=== PATIENT | female | born 1990 | race Caucasian/White ===

== ENCOUNTER 2022-11-27 07:53 | Emergency (ER) | payer OTHER, BC, MEDICAID, SELFPAY ==
[2022-11-27] VITALS (7 sets, daily range): BP systolic 112–141; BP diastolic 71–93; PULSE 76; RESP 18; TEMP 36.6; O2SAT 98–100; BMI 41.5
--- NOTE | 2022-11-27 08:20 | CT_ITS ---
WS: [id number] CT ABDOMEN AND PELVIS WITH CONTRAST HISTORY: diffuse abdominal pain, nausea, bloody stools TECHNIQUE: Imaging performed of the abdomen and pelvis with IV contrast. Single phase imaging of the abdomen. Coronal and sagittal reformats are submitted. All CT scans at [facility] use at [address] one of these dose optimization techniques: automated exposure control; mA and/or kV adjustment per patient size (includes targeted exams where dose is matched to clinical indication); or iterative re construction. IV CONTRAST: Omnipaque 300; 100 mL IV. Oral contrast: No DLP: 1065.56 mGy.cm COMPARISON: None available. Lower thorax: Lung bases are clear. Heart is normal size. No hiatal hernia. Liver/biliary system: Normal size with no intrahepatic dilatation. Gallbladder: Normal. No gallstones or wall thickening. No pericholecystic fluid. Pancreas: Normal size pancreas and pancreatic duct. No adjacent inflammation. Spleen: Normal size spleen. No mass or infarct. Adrenal glands: Normal. Right kidney: Normal. Left kidney: Normal. Aorta: Normal. Lymphadenopathy: None. Free fluid: None. GI tract: Unremarkable. Abdominal wall: Fat containing umbilical hernia. Pelvis: No free fluid or adenopathy within the pelvis. Uterus is midline. There is mild thickening an d slight enhancement along the cervix and a small focus of air. Small follicles within each ovary. Bones: Unremarkable. CT/CT abdomen pelvis w con* [id number] IMPRESSION: 1. No acute abdominal or pelvic abnormalities are identified. 2. Mild thickening and enhancement in the cervix. Recommend evaluation by RELATIONS SPECIALIST. 3. Normal appendix.
--- NOTE | 2022-11-27 08:20 | ED_ITS ---
HPI - Abdominal Pain General: Chief Complaint: GI Bleed Stated Complaint: weakness, bloody stool Time Seen by Provider: 11/27/22 08:00 Source: patient Mode of arrival: ambulatory Limitations: no limitations History of Present Illness: Patient is a nice 32-year-old female presents to ED today with a complaint of diffuse abdominal pains that she states is crampy in nature and began around 1 AM this morning. Patient states she has had 2 marlyn bloody diarrhea stools (quantifies as a few tablespoons per stool). She states she feels extremely weak. Patient feels nauseous but has not had any episodes of emesis. No vomiting. No urinary symptoms. No fevers. Patient states she has had a few previous similar abdominal episodes (without the rectal bleeding) no causes ever been found. MD elicited complaint: abdominal pain Pertinent past history: none Onset (ago): day(s) Pain Consistency: constant Location: Diffuse Severity: severe Quality: cramping Radiation: none Migration to: no migration Exacerbating factors: nothing Relieving factors: nothing Associated Symptoms: Reports GI cramping, diarrhea, hematochezia and nausea; Denies chills, dysuria, fever(s) and vomiting Related Data: Patient : No Review of Systems Const: Denies: fever(s), chills, body aches, fatigue or malaise Card: Denies: chest pain Resp: Denies: dyspnea GI: Reports: abdominal pain, nausea, diarrhea, GI cramping and hematochezia; Denies: vomiting : Denies: flank pain or dysuria Musc: Denies: neck pain Skin/Breast: Denies: rash Neuro: Denies: headache(s) Physical Exam Const: COMMON NORMALS: patient oriented x3, no limitations and alert GENERAL APPEARANCE: ill appearing ORIENTATION/CONSCIOUSNESS: Yes awake, Yes oriented to person, Yes oriented to place and Yes oriented to time HENMT: COMMON NORMALS: normocephalic and atraumatic HEAD & SCALP: normal to inspection, normocephalic and atraumatic Resp: COMMON NORMALS: normal respiratory effort and clear to auscultation bilaterally AUSCULTATION: clear to auscultation bilaterally Cardio: COMMON NORMALS: regular rate and regular rhythm RATE: regular rate RHYTHM: regular rhythm GI: COMMON NORMALS: Normal to inspection, nondistended, normoactive bowel sounds present, Soft to palpation, No hepatosplenomegaly present and no masses INSPECTION: Yes normal to inspection AUSCULTATION: Yes normoactive bowel sounds PALPATION: Yes Soft to palpation, Yes Tenderness to palpation present (GI) (diffuse), No Rigid due to palpation and Yes No hepatosplenomegaly present RECTAL EXAM: visual inspection normal, no lesion(s) noted, no fissure noted, no hemorrhoids noted and No Fistula present (GI) : COMMON NORMALS: Yes no CVA tenderness BLADDER/KIDNEY EXAM: Yes no CVA tenderness Back/Pelvis: COMMON NORMALS: no CVA tenderness Extremity: COMMON NORMALS: normal to inspection GENERAL: Yes normal exam except as noted Neuro: NEELIMA COMA SCALE: document GCS findings [place] coma scale eye opening: Spontaneous [place] coma scale verbal response: Orientated [place] coma scale motor response: Obey commands Ne[place] coma scale total score: 15 COMMON NORMALS: patient oriented x3 SENSORIUM/ORIENTATION: Yes alert, Yes oriented to person, Yes oriented to place and Yes oriented to time Skin: COMMON NORMALS: no rashes or lesions noted GENERAL SKIN EXAM: no rashes or lesions noted Course Vital Signs: Vital signs: Vital Signs Temperature 97.8 F 11/27/22 08:02 Pulse Rate 76 11/27/22 08:02 Respiratory Rate 18 11/27/22 08:02 Blood Pressure 128/93 11/27/22 11:00 Pulse Oximetry 99 11/27/22 11:00 Oxygen Delivery Me thod 11/27/22 08:54 MDM - Abdominal Pain Medical Decision Making Patient has not had any bloody stools while here. She states she feels slightly improved after fluids and pain/nausea meds. Patient is not tachycardic, febrile, or hypotensive. Blood work overall is fairly unremarkable. White count is 10.7. She has a minor bump in her lactate at 2.3. UA is clear. CT scan showing no acute abdominal or pelvic abnormalities. They did mention some enhancement of her cervix. Patient states she is UTD on her PAP. At this time I recommend patient follow-up with her primary care provider in 2 to 3 days for re-evaluation. Information was placed with case management to get her set up for evaluation for possible colonoscopy. Strict return ED precautions given in regards to worsening abdominal pains, rectal bleeding, fevers, any other concerns she may have. Lab Data 11/27/22 08:30 11/27/22 08:30 Labs/Radiology: Radiology Impressions Abdomen/Pelvis CT 11/27/22 08:20 IMPRESSION: 1. No acute abdominal or pelvic abnormalities are identified. 2. Mild thickening and enhancement in the cervix. Recommend evaluation by DARK ROOM ATTENDANT. 3. Normal appendix. Laboratory Results WBC 10.7 10^3/uL (4.0-10.0) H 11/27/22 08:30 RBC 4.83 10^6/uL (4.1-5.3) 11/27/22 08:30 Hgb 13.1 g/dL (11.5-15.3) 11/27/22 08:30 Hct 40.3 % (37.0-47.0) 11/27/22 08:30 MCV 83.4 fl (81-99) 11/27/22 08:30 MCH 27.1 pg (28.0-34.0) L 11/27/22 08:30 MCHC 32.5 g/dL (30.0-36.0) 11/27/22 08:30 RDW 11.9 % (12.1-15.1) L 11/27/22 08:30 Plt Count 258 10^3/cmm (130-400) 11/27/22 08:30 MPV 9.6 fL (7.4-10.4) 11/27/22 08:30 Neut % (Auto) 80.6 % 11/27/22 08:30 Lymph % (Auto) 14.5 % 11/27/22 08:30 [place] % (Auto) 3.6 % 11/27/22 08:30 Eos % (Auto) 0.6 % 11/27/22 08:30 Baso % (Auto) 0.3 % 11/27/22 08:30 Neut # (Auto) 8.65 10^3/uL (1.8-7.7) H 11/27/22 08:30 Lymph # (Auto) 1.6 10^3/uL (0.8-4.8) 11/27/22 08:30 [place] # (Auto) 0.4 10^3/uL (0.2-0.9) 11/27/22 08:30 Eos # (Auto) 0.1 10^3/uL (0.0-0.8) 11/27/22 08:30 Baso # (Auto) 0.0 10^3/uL (0.0-0.1) 11/27/22 08:30 Nucleated RBC % (auto) 0 % 11/27/22 08:30 Nucleated RBCs # 0.0 /100WBC 11/27/22 08:30 Sodium 137 mmol/L (136-145) 11/27/22 08:30 Potassium 4.1 mmol/L (3.5-5.1) 11/27/22 08:30 Chloride 102 mmol/L (98-107) 11/27/22 08:30 Carbon Dioxide 23 mmol/L (22-29) 11/27/22 08:30 Anion Gap 16.1 (5-19) 11/27/22 08:30 BUN 11 mg/dL (6-20) 11/27/22 08:30 Creatinine 0.6 mg/dL (0.5-0.9) 11/27/22 08:30 GFR Calculation 115.1 mL/min (90-130) 11/27/22 08:30 Glucose 131 mg/dL (65-115) H 11/27/22 08:30 Calculated Osmolality 285 mOsm/kg (285-295) 11/27/22 08:30 Lactic Acid 2.3 mmol/L (0.5-2.2) H 11/27/22 08:30 Calcium 9.2 mg/dL (8.5-10.5) 11/27/22 08:30 Total Bilirubin 0.3 mg/dL (0.15-1.2) 11/27/22 08:30 AST 14 U/L (0-32) 11/27/22 08:30 ALT 16 U/L (0-33) 11/27/22 08:30 Alkaline Phosphatase 91 U/L (35-105) 11/27/22 08:30 Total Protein 7.4 g/dL (6.6-8.7) 11/27/22 08:30 Albumin 4.2 g/dL (3.5-5.2) 11/27/22 08:30 Globulin 3.2 g/dL (1.3-4.6) 11/27/22 08:30 HCG, Qual Negative (Negative) 11/27/22 08:30 Urine Color Yellow (Yellow) 11/27/22 09:41 Urine Appearance Clear (CLEAR) 11/27/22 09:41 Urine pH 8 (5-7) H 11/27/22 09:41 Ur Specific [place] 1.015 (1.005-1.030) 11/27/22 09:41 Urine Protein Neg (Negative) 11/27/22 09:41 Urine Glucose (UA) Norm (Normal) 11/27/22 09:41 Urine Ketones Negative (Negative) 11/27/22 09:41 Urine Blood Neg (Negative) 11/27/22 09:41 Urine Nitrate Negative (Negative) 11/27/22 09:41 Urine Bilirubin Neg (Negative) 11/27/22 09:41 Prot Sulfosalicylic Acd Negative (Negative) 11/27/22 09:41 Urine Urobilinogen Norm mg/dL (Negative) 11/27/22 09:41 Ur Leukocyte Esterase Negative (Negative) 11/27/22 09:41 Discharge Plan Discharge Patient Disposition: Home Clinical Impression: Bloody diarrhea, Abdominal pain Condition: Stable Prescriptions: New hydrocodone-acetaminophen 5-325 mg tablet 1 tab PO Q6H PRN (Reason: pain) Qty: 14 0RF ondansetron 4 mg tablet,disintegrating 4 mg PO Q8H PRN (Reason: nausea and vomiting) Qty: 14 0RF No Action ibuprofen 200 mg Tablet 400 mg PO Q6H PRN (Reason: Pain) hydroxyzine HCl 25 mg tablet 25 mg PO QPM PRN (Reason: Anxiety) escitalopram oxalate 10 mg tablet 5 mg PO DAILY Discharge Orders: Discharge ED (Routine); Ordered 11/27/22 Ordered By: Michelle Garcia Referrals: Angela Sow DO [Primary Care Provider] - Patient Instructions: Abdominal Pain (ED), Opioid Safety, Pain Management Activity Restrictions/Additional Instructions: As we discussed do a bland liquid diet over the next 48 hours and slowly advance as tolerated. You may use pain medication sparingly for severe pain. You need to return to the emergency department for worsening or severe abdominal pains, worsening rectal bleeding, repetitive episodes of vomiting, fevers, or any other concerns you may have. As we discussed I have placed information with case management to get you set up for evaluation/need for possible colonoscopy evaluate for source of rectal bleeding. Stand Alone Forms: Work/School Release Coding Level of Care Code ED Wire Spooler for Chg Fwd Exam Comprehensive
[2022-11-27 08:43] LABS: Basophils % 0.3 %; Eosinophils # 0.1 10^3/uL (0.0-0.8); Eosinophils % 0.6 %; Hematocrit 40.3 % (37.0-47.0); Hemoglobin 13.1 g/dL (11.5-15.3); Lymphocytes # 1.6 10^3/uL (0.8-4.8); Lymphocytes % 14.5 %; Mean Corpuscular HGB Conc 32.5 g/dL (30.0-36.0); Mean Corpuscular Hemoglobin 27.1 pg (28.0-34.0); Mean Corpuscular Volume 83.4 fl (81-99); Mean Platelet Volume 9.6 fL (7.4-10.4); Monocytes # 0.4 10^3/uL (0.2-0.9); Monocytes % 3.6 %; Neutrophils # 8.65 10^3/uL (1.8-7.7); Neutrophils % 80.6 %; Nucleated Red Blood Cells % 0 %; Platelet Count 258 10^3/cmm (130-400); Red Blood Count 4.83 10^6/uL (4.1-5.3); Red Cell Distribution Width 11.9 % (12.1-15.1); White Blood Count 10.7 10^3/uL (4.0-10.0)
[2022-11-27] MEDS: ondansetron 2 mg/ML SDV 2 mL 4 MG IVP (08:45)
[2022-11-27] MEDS: fentaNYL 50 mcg/mL INJ 2mL IVP (08:45)
[2022-11-27] MEDS: sodium chloride 0.9% 1,000 ML 999 ML IV (08:46)
[2022-11-27 09:00] LABS: HCG, Serum Qual Negative (Negative)
[2022-11-27 09:05] LABS: Lactic Sepsis W/Reflex 2.3 mmol/L (0.5-2.2)
[2022-11-27 09:06] LABS: Alanine Aminotransferase 16 U/L (0-33); Albumin Level 4.2 g/dL (3.5-5.2); Alkaline Phosphatase 91 U/L (35-105); Anion Gap 16.1 (5-19); Aspartate Amino Transferase 14 U/L (0-32); Blood Urea Nitrogen 11 mg/dL (6-20); Calcium 9.2 mg/dL (8.5-10.5); Carbon Dioxide 23 mmol/L (22-29); Chloride 102 mmol/L (98-107); Globulin 3.2 g/dL (1.3-4.6); Glomerular Filtration Rate 115.1 mL/min (90-130); Glucose 131 mg/dL (65-115); Osmolality Calculated 285 mOsm/kg (285-295); Potassium 4.1 mmol/L (3.5-5.1); Sodium 137 mmol/L (136-145); Total Bilirubin 0.3 mg/dL (0.15-1.2); Total Protein 7.4 g/dL (6.6-8.7)
[2022-11-27 10:01] LABS: Add Urine Microscopic? NO; Charge for UA Resulting for Rev
[2022-11-27] MEDS: iohexol 350 mg/mL 500 mL Btl (per mL) IV (10:05)
[2022-11-27 10:19] LABS: Bilirubin Urine Neg (Negative); Blood Urine Neg (Negative); Glucose Urine UA Norm (Normal); Ketones Urine Negative (Negative); Leukocyte Esterase Urine Negative (Negative); Nitrate Urine Negative (Negative); Protein Urine Neg (Negative); Specific Gravity, Urine 1.015 (1.005-1.030); Sulfosalicylic Acid Urine Negative (Negative); Urine Appearance Clear (CLEAR); Urine Color Yellow (Yellow); Urobilinogen Urine Norm (Negative); pH Urine 8 (5-7)
[2022-11-27 10:28] LABS: Reflex Lactate Order REFLEX LACTIC ORDERD
--- NOTE | 2022-11-27 15:39 | DCPLANNER ---
Addendum entered by Lora Payne 01/08/23 07:58: Patient did attend appointment with general surgery Addendum entered by Lora Payne 11/29/22 10:47: Patient has a follow up appointment scheduled for Saturday, December 24, 2022 at 8:[address] Miguel at general surgery. Clinic will call patient with appointment information. Original Note: manager operating had message to schedule a follow up appointment for patient with general surgery. manager operating sent patients information to the front office staff at general surgery. Patients information will be printed and reviewed. Clinic will call patient with appointment information.
== END 2022-11-27 11:27 | disposition home or self-care (01) ==
PROVIDERS: Emergency Provider Physician Assistant; PCP Family Medicine
DX: R10.9 Unspecified abdominal pain (principal); K92.1 Melena; R19.7 Diarrhea, unspecified
CPT/HCPCS: 74177; 80053; 81003; 83605; 84703; 85025; 96361; 96374; 96375; 99285; J2405; J3010; J7030; Q9967

== ENCOUNTER 2023-01-08 07:20 | Day surgery (SDC) | payer OTHER, BC, MEDICAID, SELFPAY ==
[2023-01-06 10:36] VITALS: BMI 42.3
[2023-01-08 07:44] VITALS: BP 149/92; PULSE 88; RESP 18; TEMP 36.4; O2SAT 98
[2023-01-08 07:54] LABS: OR HCG Qualitative Urine Negative (Negative)
[2023-01-08] MEDS: sodium chloride 0.9% 1,000 ML 30 ML IV (08:01)
--- NOTE | 2023-01-08 08:06 | P.ANESASSM_ITS ---
Pre-Anesthetic Assessment Height/Weight: Height 1.65 m Weight 115.212 kg Temp Pulse Resp BP Pulse Ox O2 Del Method 97.6 F 88 18 149/92 98 01/08/23 07:44 01/08/23 07:44 01/08/23 07:44 01/08/23 07:44 01/08/23 07:44 01/08/23 07:44 Operation Date: 01/08/23 09:00 Proposed Procedures p [id number] egd, [id number] colon R10.9,K92.1(Not Applicable) - DO emili Mcgraw Colonoscopy(Not Applicable) - Paresh Miguel DO Familial anesthetic complications: None Was Beta Maribell taken within 24 hours: N/A Was Clonidine taken within 24 hours: N/A Last intake: Intake Last Liquid Date 02/04/23 Last Liquid Time 23:30 Last Solid Date 01/06/23 Last Solid Time 20:00 Social No alcohol and No tobacco Exam alert, oriented x 3, clear to auscultation bilaterally and regular rate & rhythm Airway Submandibular: within normal limits Cervical ROM: within normal limits Mallampati: Class III Dentition: full History/ROS No significant history except as noted and No significant complaints Pulmonary None reported CV/HEM None reported None reported Hepatic None reported GI Gastroesophageal Reflux Disease (None this am) Metabolic Morbid Ob[place] [facility] [place] None reported Neuropsych Anxiety and Depression Anesthetic Plan ASA status: 2 Anesthesia: Anesthesia Evaluation, General and MAC Risk of > 500 ml blood loss (7ml/kg in children): No Medications/Allergies Home Medications Medication Instructions Recorded Confirmed Last Taken Type hydroxyzine HCl 25 mg tablet 25 mg PO QPM PRN Anxiety 11/27/22 01/06/23 01/03/23 History ibuprofen 200 mg tablet 400 mg PO Q6H PRN Pain 11/27/22 01/06/23 01/07/23 19:00 History ondansetron 4 mg disintegrating 4 mg PO Q8H PRN nausea and 11/27/22 01/06/23 01/07/23 13:00 Rx tablet vomiting #14 tabs hydrocortisone 2.5 % topical cream 1 applic MO QID 10 days #30 grams 01/08/23 Unknown Rx with perineal applicator (Anusol-HC) Allergies Allergy/AdvReac Type Severity Reaction Status Date / Time morphine Allergy nausea Verified 12/24/22 07:52 Current Medications Generic Name Dose Route Start Last Admin Trade Name Freq PRN Reason Stop Dose Admin Sodium Chloride 1,000 mls @ 30 mls/hr 01/08/23 07:30 01/08/23 08:01 Sodium Chloride 0.9% IV 01/09/23 07:29 30 mls/hr .Q24H MARICRUZ Administration PFSH Anesthesia Medical History (Updated 12/24/22 @ 08:24 by Paresh Miguel DO) Abdominal pain Surgical History History of tonsillectomy and adenoidectomy Hx of tubal ligation Family History Mother Thyroid disease Social History Smoking and tobacco status: never smoked Alcohol intake: former Data Anesthesia Cardiac Studies: No Data to Display
--- NOTE | 2023-01-08 09:26 | W.PM.OPSUD ---
Surgery/Procedure H&P Update DATE OF PROCEDURE: January 08, 2023 DATE H&P PERFORMED: 12/24/22 H&P UPDATE INFORMATION: I have reviewed H&P completed within last 30 days, I have examined patient prior to procedure and No changes to prior documentation PLANNED PROCEDURE: Operation Date: 01/08/23 09:00 Proposed Procedures p [id number] egd, [id number] colon R10.9,K92.1(Not Applicable) - DO emili Mcgraw Colonoscopy(Not Applicable) - Paresh Miguel DO
[2023-01-08 09:57] VITALS: BP 128/57; PULSE 88; RESP 18; TEMP 36.5; O2SAT 100
[2023-01-08 10:13] VITALS: BP 136/76; PULSE 103; RESP 18; TEMP 36.7; O2SAT 100
--- NOTE | 2023-01-08 12:59 | ANE.PACU2 ---
Inpatient post-anesthesia follow up: Airway intact: Yes Vital signs: Temperature 98.0 F Pulse Rate 103 Respiratory Rate 18 Blood Pressure 136/76 Pulse Oximetry 100 Oxygen Delivery Me thod Room Air Oxygen Flow Rate Fraction of Inspir ed Oxygen Hydration adequate: Yes Nausea and vomiting: No Pain level: 2
== END 2023-01-08 10:27 | disposition home or self-care (01) ==
PROVIDERS: Anesthesiology; PCP Family Medicine; Visit Provider Surgery
PROC: 0DJD8ZZ Inspection of Lower Intestinal Tract, Via Natural or Artificial Opening Endoscopic (ICD-10-PCS; CPT 45378; 2023-01-08 09:00)
PROC: 0DJ08ZZ Inspection of Upper Intestinal Tract, Via Natural or Artificial Opening Endoscopic (ICD-10-PCS; CPT 43235; 2023-01-08 09:00)
DX: R10.9 Unspecified abdominal pain (principal); K21.9 Gastro-esophageal reflux disease without esophagitis; K64.8 Other hemorrhoids; K29.50 Unspecified chronic gastritis without bleeding; E66.01 Morbid (severe) obesity due to excess calories; Z68.41 Body mass index [BMI] 40.0-44.9, adult
CPT/HCPCS: 43239; 45378; 81025; 84703; 88305; J2704; J7030

== ENCOUNTER → 2024-01-23 10:08 | Outpatient (BNVA) | payer OTHER, SELFPAY | PROVIDERS: PCP Family Medicine; Visit Provider Family Medicine | DX: Z13.6 Encounter for screening for cardiovascular disorders; A04.8 Other specified bacterial intestinal infections | CPT/HCPCS: 85025 ==

== ENCOUNTER 2024-01-26 07:51 | Outpatient (CLI) | payer OTHER, SELFPAY ==
[2024-01-26 08:29] LABS: Basophils % 0.7 %; Eosinophils # 0.1 10^3/uL (0.0-0.8); Eosinophils % 2.4 %; Hematocrit 36.7 % (36-47); Lymphocytes # 1.9 10^3/uL (0.8-4.8); Lymphocytes % 34.5 %; Mean Corpuscular HGB Conc 31.3 g/dL (30-55); Mean Corpuscular Hemoglobin 26.1 pg (27-33); Mean Corpuscular Volume 83.2 fl (85-98); Mean Platelet Volume 9.7 fL (7.4-10.4); Monocytes # 0.4 10^3/uL (0.2-0.9); Monocytes % 7.6 %; Neutrophils # 3.01 10^3/uL (1.8-7.7); Neutrophils % 54.4 %; Nucleated Red Blood Cells % 0 %; Platelet Count 222 10^3/cmm (157-399); Red Blood Count 4.41 10^6/uL (3.85-5.65); Red Cell Distribution Width 12.6 % (12.1-15.1); White Blood Count 5.53 10^3/uL (3.29-11.43)
[2024-01-26 09:03] LABS: Alanine Aminotransferase 14 U/L (0-33); Albumin Level 3.8 g/dL (3.5-5.2); Alkaline Phosphatase 106 U/L (35-105); Anion Gap 13.4 (5-19); Aspartate Amino Transferase 12 U/L (0-32); Blood Urea Nitrogen 14 mg/dL (6-20); Calcium 8.7 mg/dL (8.5-10.5); Carbon Dioxide 25 mmol/L (22-29); Chloride 103 mmol/L (98-107); Globulin 2.7 g/dL (1.3-4.6); Glomerular Filtration Rate 141.2 mL/min (90-130); Glucose 91 mg/dL (65-115); Osmolality Calculated 284 mOsm/kg (285-295); Potassium 4.4 mmol/L (3.5-5.1); Sodium 137 mmol/L (136-145); Thyroid Stimulating Hormone 1.23 uIU/mL (0.27-4.20); Total Bilirubin 0.3 mg/dL (0.15-1.2); Total Protein 6.5 g/dL (6.6-8.7)
== END 2024-01-26 07:52 | disposition home or self-care (01) ==
LOC: LAB 07:53
PROVIDERS: PCP Family Medicine; Visit Provider Family Medicine
DX: Z13.6 Encounter for screening for cardiovascular disorders (principal)
CPT/HCPCS: 36415; 80053; 84443; 85025

== ENCOUNTER → 2024-02-09 07:24 | Outpatient (BNVA) | payer OTHER, SELFPAY | PROVIDERS: PCP Family Medicine; Visit Provider Family Medicine | DX: F41.1 Generalized anxiety disorder (principal); B00.1 Herpesviral vesicular dermatitis; Z13.6 Encounter for screening for cardiovascular disorders; Z76.89 Persons encountering health services in other specified circumstances; A04.8 Other specified bacterial intestinal infections; K59.09 Other constipation; R07.81 Pleurodynia | CPT/HCPCS: 87338 ==

== ENCOUNTER → 2025-01-18 15:41 | Outpatient (BNVA) | payer OTHER, SELFPAY | PROVIDERS: PCP Family Medicine; Visit Provider Family Medicine | DX: R10.12 Left upper quadrant pain (principal); G89.29 Other chronic pain | CPT/HCPCS: 80053; 83690; 85025 ==

== ENCOUNTER 2025-02-04 09:21 | Outpatient (CLI) | payer OTHER, SELFPAY ==
--- NOTE | 2025-02-04 09:45 | US_ITS ---
WS: [id number] Complete ABDOMINAL ULTRASOUND HISTORY: chronic LUQ abd pain COMPARISON: CT 11/27/2022 Liver: 13.8 cm in length. Normal size liver and echogenicity. No bile duct dilatation or mass. Portal Vein: Normal hepatopetal flow with monophasic waveform. Gallbladder: Normally distended gallbladder with no stones or wall thickening. CBD: 0.4 cm Pancreas: Poorly visualized. Right kidney: 10.3 cm x 5.6 x 5.1 cm. Cortex:1.0 cm. Normal size and echogenicity. No hydronephrosis or mass. Left kidney: 10.7 cm x 6.3 cm x 6.8 cm. Cortex: 1.2 cm. Normal size and echogenicity. No hydronephrosis or mass. Spleen: 11.3 cm. Normal size and echogenicity. Aorta and IVC: Unremarkable abdominal aorta and IVC. US/US abdomen complete* [id number] Impression: 1. Limited quality abdominal ultrasound due to body habitus. 2. Negative gallbladder. 3. No renal obstruction. 4. Negative liver.
== END 2025-02-04 09:22 | disposition home or self-care (01) ==
PROVIDERS: PCP Family Medicine; Visit Provider Family Medicine
DX: R10.12 Left upper quadrant pain (principal); G89.29 Other chronic pain
CPT/HCPCS: 76700

== ENCOUNTER → 2025-03-14 07:47 | Outpatient (BNVA) | payer OTHER, SELFPAY | PROVIDERS: PCP Family Medicine; Visit Provider Family Medicine | DX: R10.12 Left upper quadrant pain (principal); G89.29 Other chronic pain | CPT/HCPCS: 87338 ==